=== PATIENT | male | born 1980 | race Caucasian/White ===

== ENCOUNTER 2018-04-06 16:21 | Emergency (ER) | payer OTHER ==
[~2018-04-06] VITALS: Ht 177.8 cm; Wt 70.0 kg
[2018-04-06 16:27] VITALS: BP 124/67
--- NOTE | 2018-04-06 17:52 | NUR ---
Officers awaiting lab results from second draw prior to dc
== END 2018-04-06 18:12 | disposition home or self-care (01) ==
LOC: ED 18:06
DX: S61.031A Puncture wound without foreign body of right thumb without damage to nail, initial encounter (principal); W46.1XXA Contact with contaminated hypodermic needle, initial encounter; Y93.89 Activity, other specified; Y92.89 Other specified places as the place of occurrence of the external cause; Y99.8 Other external cause status
CPT/HCPCS: 36415; 86705; 86706; 86803; 87340; 87806; 99283; G0475